=== PATIENT | male | born 1935 | race Caucasian/White ===

== ENCOUNTER 2017-11-16 06:35 | Day surgery (SDC) | payer MEDICARE, OTHER ==
[~2017-11-16] VITALS: Ht 175.3 cm; Wt 81.0 kg
[~2017-11-16 06:35] MED LIST: ASPI81TA27 PO; GLIP-115 PO; MAGN400T5 PO; MULTTAB PO; OMEP20TA PO; SIMV-8 PO
[2017-11-16] MEDS ORDERED: MIDAZOLAM HCL 1MG/1ML-2 ML VIAL ONE (07:55)
[2017-11-16] MEDS ORDERED: fentaNYL CITRATE 100 MCG/2 ML VL ONE (07:55)
[2017-11-16] MEDS ORDERED: ANGIOMAX 250 MG VIAL IV ONE (07:56)
[2017-11-16] MEDS ORDERED: VERAPAMIL 2.5MG/ML INJ 2ML VIAL IV ONE (07:56)
[2017-11-16] MEDS ORDERED: FLUMAZENIL 0.1 MG/ML INJ 10ML MDV IV ONE (07:56)
[2017-11-16] MEDS ORDERED: NALOXONE HCL 0.4 MG/ML VIAL ONE (07:56)
[2017-11-16] MEDS ORDERED: SODIUM CHL 0.9% 0 ML ONE (07:57)
[2017-11-16] MEDS ORDERED: IODIXANOL 320MG/ML 100ML BTL IV ONE (07:57)
[2017-11-16] MEDS ORDERED: SODIUM CHL 0.9% 50 ML ONE (07:59)
[2017-11-16] MEDS ORDERED: NITROGLYCERIN 5MG/ML 10ML VIAL IV ONE (07:59)
[2017-11-16] MEDS ORDERED: EPTIFIBATIDE DRIP(0.75MG/ML) 100 ML IV ONE (07:59)
[2017-11-16] MEDS ORDERED: LIDOCAINE 2%HCL (LOCAL ANESTH.) INJ 20ML MDV ONE (08:05)
[2017-11-16] MEDS ORDERED: HEPARIN SODIUM (PORCINE) 5000 UNITS/ML 1ML VIAL ONE (08:23)
== END 2017-11-16 11:57 | disposition home or self-care (01) ==
LOC: CATH 06:35
PROVIDERS: ATTEND Internal Medicine
DX: R94.39 Abnormal result of other cardiovascular function study (principal); I72.8 Aneurysm of other specified arteries; E66.9 Obesity, unspecified; E11.9 Type 2 diabetes mellitus without complications; Z83.3 Family history of diabetes mellitus; Z79.84 Long term (current) use of oral hypoglycemic drugs; Z79.899 Other long term (current) drug therapy
CPT/HCPCS: 82962; 93306; 93454; C1769; C1894; J1327; J1644; J2250; J3010; J3490; J7030; Q9967; 99152